=== PATIENT | female | born 1960 | race Hispanic/Latino ===

== ENCOUNTER → 2018-12-18 | Outpatient (CLI) | payer BC ==
[~2018-12-18] MED LIST: BENZ-17 PO; LOSA25TA41 PO; METF-444 PO; TUSSINEX
== END | disposition home or self-care (01) ==
LOC: RAH 12:47
PROVIDERS: ATTEND Internal Medicine
DX: Z12.31 Encounter for screening mammogram for malignant neoplasm of breast (principal)
CPT/HCPCS: 77067

== ENCOUNTER → 2020-02-18 | Outpatient (CLI) | payer BC | END | disposition home or self-care (01) | LOC: RAH 13:11 | PROVIDERS: ATTEND Internal Medicine | DX: Z12.31 Encounter for screening mammogram for malignant neoplasm of breast (principal) | CPT/HCPCS: 77067 ==

== ENCOUNTER 2021-06-26 05:30 | Observation (INO) | payer BC ==
[2021-06-25 11:16] VITALS: BP 97/42
[2021-06-25 12:26] LABS: BASOPHILS % (AUTO) 0.5 % (0.0-5.0); EOSINOPHILS % (AUTO) 2.2 % (0.0-8.0); HEMATOCRIT 43.9 % (36-48); LYMPHOCYTES % (AUTO) 36.5 % (21.0-51.0); MEAN CORPUSCULAR HEMOGLOBIN 28.1 pg (27.0-33.0); MEAN CORPUSCULAR HGB CONC 32.1 g/dL (32.0-36.0); MEAN CORPUSCULAR VOLUME 87.5 fL (79-99); MONOCYTES % (AUTO) 9.4 % (3.0-13.0); NEUTROPHILS % (AUTO) 51.1 % (40.0-77.0); PLATELET COUNT (AUTO) 274 K/uL (130-400); RED BLOOD CELL COUNT(AUTO) 5.02 MIL/uL (4.00-5.50); RED CELL DISTRIBUTION WIDTH 14.6 % (11.0-15.5); WHITE BLOOD COUNT (AUTO) 5.8 K/uL (4.8-10.8)
[2021-06-25 12:53] LABS: CREATININE 0.6 mg/dL (0.5-1.5); POTASSIUM 3.8 mmol/L (3.5-5.1)
[2021-06-25] MEDS: INSULIN R PO SS1 SQ SCH (16:30)
[2021-06-26] VITALS (19 sets, daily range): BP systolic 11–159; BP diastolic 55–79
[~2021-06-26] VITALS: Ht 165.1 cm; Wt 124.6 kg
[~2021-06-26 05:30] MED LIST changes: +ACETAMINOPHEN WITH CODEINE 1 TAB TAB PO PRN; +ASPI-1443 PO; -BENZ-17 PO; +BISACODYL 10 MG SUPP.RECT RC PRN; +CALC-1009 PO; +CEFAZOLIN SODIUM 3 GM VIAL IV SCH; +CETI-89 PO; +DOCUSATE SODIUM 100 MG CAP PO PRN; +FISH OIL PO; +IBUPROFEN 600 MG TABLET PO PRN; -LOSA25TA41 PO; +LOSA50TA64 PO; +LOVA10TA2 PO; +MEPERIDINE-PF 75 MG/ML SYG IM PRN; +MULT-1296 PO; +NAPROXEN PO; +ONDANSETRON 4MG INJ IVP PRN; +PROMETHAZINE HCL 25 MG/ML 1ML AMPULE IM PRN; +SEMA1PEN3 SQ; +SIMETHICONE 80 MG TAB.CHEW PO PRN; -TUSSINEX; +VITA200T8 PO; +VITS1TAB2 PO
[2021-06-26] MEDS ORDERED: 0.9%NACL 1000ML 1,000 ML IV ONE (06:27)
[2021-06-26] MEDS ORDERED: CEFAZOLIN SODIUM 1 GM VIAL ONE (06:27)
[2021-06-26] MEDS ORDERED: METHYLENE BLUE 5 MG/ML AMP ONE (11:13)
[2021-06-26] MEDS ORDERED: LIDOCAINE PF 100MG/5ML (2%) SYRINGE 5ML ONE ×2 (11:42→11:44)
[2021-06-26] MEDS ORDERED: ONDANSETRON 4MG INJ ONE (11:42)
[2021-06-26] MEDS ORDERED: NEOSTIGMINE 5MG/5ML SYR IV ONE (11:42)
[2021-06-26] MEDS ORDERED: ROCURONIUM 10MG/1ML SYR 10 MG/ML ML ONE (11:42)
[2021-06-26] MEDS ORDERED: DEXAMETHASONE SOD PHOSPHATE 10MG/ML 1ML VIAL ONE (11:42)
[2021-06-26] MEDS ORDERED: MIDAZOLAM HCL 1 MG/ML 2ML VIAL ONE (11:42)
[2021-06-26] MEDS ORDERED: PROPOFOL 10 MG/ML 20ML VIAL IV ONE (11:42)
[2021-06-26] MEDS ORDERED: SUCCINYLCHOLINE 200MG/10ML SYR ONE ×2 (11:42→11:44)
[2021-06-26] MEDS ORDERED: GLYCOPYRROLATE 1 MG/5 ML SYRINGE ONE (11:42)
[2021-06-26] MEDS ORDERED: FENTANYL CITRATE PF 50 MCG/1 ML 2ML VIAL ONE ×2 (11:43→13:27)
[2021-06-26] MEDS ORDERED: CEFAZOLIN SODIUM 3 GM VIAL IV ONE (11:56)
[2021-06-26] MEDS ORDERED: MEPERIDINE-PF 25 MG/ML SYG ONE (15:43)
[2021-06-26] MEDS: LACTATED RINGERS 1000ML 1,000 ML IV SCH (16:44)
[2021-06-26] MEDS ORDERED: ONDANSETRON 4MG INJ IVP PRN (17:00)
[2021-06-26] MEDS ORDERED: MEPERIDINE-PF 75 MG/ML SYG IM PRN (17:00)
[2021-06-26] MEDS ORDERED: IBUPROFEN 600 MG TABLET PO PRN (17:00)
[2021-06-26] MEDS ORDERED: BISACODYL 10 MG SUPP.RECT RC PRN (17:00)
[2021-06-26] MEDS ORDERED: LACTATED RINGERS 1000ML 1,000 ML IV SCH (17:00)
[2021-06-26] MEDS ORDERED: PROMETHAZINE HCL 25 MG/ML 1ML AMPULE IM PRN (17:00)
[2021-06-26] MEDS: INSULIN HUMULIN R 100 UNIT/ML 3ML SQ SCH (21:00)
[2021-06-26] MEDS: INSULIN R PO SS1 SQ SCH (21:00)
[2021-06-26] MEDS: DOCUSATE SODIUM 100 MG CAP PO PRN (21:50)
[2021-06-26] MEDS: SIMETHICONE 80 MG TAB.CHEW PO PRN (21:50)
[2021-06-27] MEDS: ACETAMINOPHEN WITH CODEINE 1 TAB TAB PO PRN ×2 (00:20→09:21)
[2021-06-27 00:25] VITALS: BP 137/60
[2021-06-27] MEDS: LACTATED RINGERS 1000ML 1,000 ML IV SCH (01:50)
[2021-06-27 02:27] VITALS: BP 122/52
[2021-06-27 06:40] LABS: HEMATOCRIT 37.6 % (36-48); MEAN CORPUSCULAR HEMOGLOBIN 28.4 pg (27.0-33.0); MEAN CORPUSCULAR HGB CONC 32.2 g/dL (32.0-36.0); MEAN CORPUSCULAR VOLUME 88.3 fL (79-99); RED BLOOD CELL COUNT(AUTO) 4.26 MIL/uL (4.00-5.50); RED CELL DISTRIBUTION WIDTH 14.8 % (11.0-15.5); WHITE BLOOD COUNT (AUTO) 12.6 K/uL (4.8-10.8)
[2021-06-27 07:28] VITALS: BP 118/65
[2021-06-27] MEDS: INSULIN HUMULIN R 100 UNIT/ML 3ML SQ SCH (07:30)
[2021-06-27] MEDS: DOCUSATE SODIUM 100 MG CAP PO PRN (09:20)
[2021-06-27] MEDS: SIMETHICONE 80 MG TAB.CHEW PO PRN (09:20)
== END 2021-06-27 12:30 | disposition home or self-care (01) ==
LOC: DAH 05:30 → DAHIP 05:31 → WSH 16:15
PROVIDERS: ADMIT Obstetrics & Gynecology; ATTEND Obstetrics & Gynecology
DX: D25.9 Leiomyoma of uterus, unspecified (principal); Z20.822 Contact with and (suspected) exposure to COVID-19; N99.4 Postprocedural pelvic peritoneal adhesions; I10 Essential (primary) hypertension; E11.9 Type 2 diabetes mellitus without complications; E66.01 Morbid (severe) obesity due to excess calories; Z79.899 Other long term (current) drug therapy
CPT/HCPCS: 36415 ×2; 58552; 80048; 82948 ×5; 85025; 85027; 86850; 86900; 86901; 87635; 96372; A4215 ×2; A4221; A4222; A4223; A4344; A4649 ×3; A4663; A6260; C1769 ×3; C9803; G0378 ×18; J0330 ×2; J0690 ×2; J1100; J2001 ×2; J2175 ×2; J2250; J2405; J2550; J2704; J2710; J3010 ×2; J3490; J7030 ×2; J7120 ×4; Q9968

== ENCOUNTER → 2023-11-10 | Outpatient (CLI) | payer BC ==
[~2023-11-10] MED LIST changes: -ACETAMINOPHEN WITH CODEINE 1 TAB TAB PO PRN; -BISACODYL 10 MG SUPP.RECT RC PRN; -CEFAZOLIN SODIUM 3 GM VIAL IV SCH; -DOCUSATE SODIUM 100 MG CAP PO PRN; -IBUPROFEN 600 MG TABLET PO PRN; -MEPERIDINE-PF 75 MG/ML SYG IM PRN; -ONDANSETRON 4MG INJ IVP PRN; -PROMETHAZINE HCL 25 MG/ML 1ML AMPULE IM PRN; -SIMETHICONE 80 MG TAB.CHEW PO PRN
== END | disposition home or self-care (01) ==
LOC: RAH 13:37
PROVIDERS: ATTEND Internal Medicine
DX: M17.12 Unilateral primary osteoarthritis, left knee (principal); M25.512 Pain in left shoulder; M47.816 Spondylosis without myelopathy or radiculopathy, lumbar region; M41.86 Other forms of scoliosis, lumbar region; M48.061 Spinal stenosis, lumbar region without neurogenic claudication
CPT/HCPCS: 72100; 73030; 73560

== ENCOUNTER → 2024-01-19 | Outpatient (CLI) | payer BC | END | disposition home or self-care (01) | LOC: RAH 08:11 | PROVIDERS: ATTEND Internal Medicine | DX: R42 Dizziness and giddiness (principal) | CPT/HCPCS: 93880 ==

== ENCOUNTER → 2024-08-31 | Outpatient (CLI) | payer BC ==
--- NOTE | 2024-09-01 09:41 | HMCIMG ---
MAMMO SCREENING BILATERAL HISTORY: Screening mammogram. COMPARISON: 08/26/2023 TECHNIQUE: Bilateral screening mammogram with CAD was performed with craniocaudal and mediolateral oblique projections. FINDINGS: There are scattered areas of fibroglandular density. There is no evidence of a dominant mass, or suspicious microcalcification. There is no evidence of nipple retraction or skin thickening. IMPRESSION: 1. Stable mammogram. Patient was entered into a reminder system with a target due date for their next mammogram. BI-RADS: CATEGORY 2: BENIGN FINDINGS Recommend monthly self breast exam as well as annual clinical examination. A negative x-ray should not delay biopsy if a dominant or clinically suspicious mass is present, since 8-10% of cancers are not identified by mammography. Dense breasts particularly, may obscure an underlying neoplasm. Some of these may be detected clinically and therefore, clinical examination is an essential part of breast evaluation.
== END | disposition home or self-care (01) ==
LOC: RAH 10:26
PROVIDERS: ATTEND Internal Medicine
DX: Z12.31 Encounter for screening mammogram for malignant neoplasm of breast (principal); R92.323 Mammographic fibroglandular density, bilateral breasts
CPT/HCPCS: 77067